=== PATIENT | female | born 1945 | race Caucasian/White ===

== ENCOUNTER 2017-08-15 12:32 | Inpatient (IN) | payer MEDICARE, OTHER ==
[~2017-08-15] VITALS: Ht 157.5 cm; Wt 72.8 kg
[2017-08-15 14:47] LABS: INTERNATIONAL NORMALIZED RATIO 0.98 (0.93-1.1); MEAN CORPUSCULAR HEMOGLOBIN 26.9 pg (27.0-34.8); MEAN CORPUSCULAR HGB CONC 32.6 g/dL (32.4-35.8); MEAN CORPUSCULAR VOLUME 82.4 fL (80-100); MEAN PLATELET VOLUME 8.6 fL (7.4-10.4); PLATELET COUNT 229 x10^3/uL (130-400); PROTHROMBIN TIME 10.1 Seconds (9.6-11.5); RED CELL DISTRIBUTION WIDTH 33.3 % (9.6-15.2)
[2017-08-15 14:50] LABS: ALANINE AMINOTRANSFERASE 11 U/L (12-78); ALBUMIN 3.4 g/dL (3.4-5.0); ANION GAP 4 mmol/L (5-15); CHLORIDE 102 mmol/L (98-107); CREATININE 0.61 mg/dL (0.55-1.02)
[2017-08-15 14:52] LABS: ALKALINE PHOSPHATASE 66 U/L (45-117); BILIRUBIN,TOTAL 0.2 mg/dL (0.2-1.0); TOTAL PROTEIN 7.7 g/dL (6.4-8.2)
[2017-08-15 15:04] LABS: BASOPHILS # (AUTO) 0.03 x10^3/uL (0-0.1); BASOPHILS % (AUTO) 0 % (0-1); EOSINOPHILS # (AUTO) 0.25 x10^3/uL (0-0.4); EOSINOPHILS % (AUTO) 4 % (1-7); LYMPHOCYTES # (AUTO) 2.42 x10^3/uL (1-3.4); LYMPHOCYTES % (AUTO) 35 % (22-44); MD MORPH REVIEW ONLY; MONOCYTES # (AUTO) 0.76 x10^3/uL (0.2-0.8); MONOCYTES % (AUTO) 11 % (2-9); NEUTROPHILS # (AUTO) 3.49 x10^3/uL (1.8-6.8); NEUTROPHILS % (AUTO) 50 % (42-75)
[2017-08-15 15:05] LABS: ANISOCYTOSIS 1+; MICROCYTOSIS 1+; OVALOCYTES 1+
[2017-08-15 15:06] LABS: <PLATELET ESTIMATE> ADEQUATE; <PLT MORPHOLOGY> NORMAL PLT MORPH
[2017-08-15 15:24] LABS: MICROSCOPIC AUTO
[2017-08-15 15:29] LABS: CULTURE INDICATED? YES
[2017-08-15] MEDS ORDERED: CEFTRIAXONE PMX 1GM/50ML 50 ML ONE (15:43)
[2017-08-15] MEDS ORDERED: CEFTRIAXONE PMX 1GM/50ML 50 ML IV ONE (16:00)
[2017-08-15] MEDS ORDERED: METH5TAB2 PO (16:16)
[2017-08-15] MEDS ORDERED: POTA20TA89 PO (16:16)
[2017-08-15] MEDS ORDERED: ACET650S21 PO (16:16)
[2017-08-15] MEDS ORDERED: POLY17PO5 PO (16:16)
[2017-08-15] MEDS ORDERED: ASPI-650 PO (16:16)
[2017-08-15] MEDS ORDERED: FERR325T5 PO (16:16)
[2017-08-15] MEDS ORDERED: GABA300C10 PO (16:16)
[2017-08-15] MEDS ORDERED: IPRA0.2S35 INH (16:16)
[2017-08-15] MEDS ORDERED: CALC-112 PO (16:16)
[2017-08-15] MEDS ORDERED: TIOT18CA INH (16:16)
[2017-08-15] MEDS ORDERED: DULO20CA45 PO (16:16)
[2017-08-15] MEDS ORDERED: CHOL200074 PO (16:16)
[2017-08-15] MEDS ORDERED: LATA2.5D3 EACHEYE (16:16)
[2017-08-15] MEDS ORDERED: DIVA125C PO (16:16)
[2017-08-15] MEDS ORDERED: LORA0.5T PO (16:16)
[2017-08-15] MEDS ORDERED: MAGN400O7 PO (16:16)
[2017-08-15] MEDS ORDERED: BISA10SU54 PR (16:16)
[2017-08-15 17:42] VITALS: BP 137/75
[2017-08-15] MEDS ORDERED: ONDANSETRON 2MG/ML, 2ML IVPush PRN (18:00)
[2017-08-15] MEDS ORDERED: ACETAMINOPHEN 325 MG TABLET PO PRN (18:00)
[2017-08-15 19:40] VITALS: BP 151/81
[2017-08-15] MEDS: DIVALPROEX 125 MG CAP.SPRINK PO SCH (21:20)
[2017-08-15] MEDS: GABAPENTIN 300 MG CAPSULE PO SCH (21:20)
[2017-08-15] MEDS: LATANOPROST OPHTH 0.005%, 2.5ML EACHEYE SCH (21:20)
[2017-08-16 00:55] VITALS: BP 123/75
[2017-08-16 07:11] VITALS: BP 109/68
[2017-08-16] MEDS: ENOXAPARIN 40 MG/0.4 ML SQ SCH (09:18)
[2017-08-16] MEDS: DULOXETINE 20 MG CAPSULE.DR PO SCH (09:18)
[2017-08-16] MEDS: GABAPENTIN 300 MG CAPSULE PO SCH ×3 (09:18→19:47)
[2017-08-16] MEDS: DIVALPROEX 125 MG CAP.SPRINK PO SCH ×2 (09:18→19:47)
[2017-08-16 11:50] VITALS: BP 123/41
[2017-08-16 13:21] VITALS: BP 120/75
[2017-08-16] MEDS ORDERED: CEFTRIAXONE PMX 2GM/50ML 50 ML IV SCH (16:00)
[2017-08-16] MEDS: LATANOPROST OPHTH 0.005%, 2.5ML EACHEYE SCH (19:48)
[2017-08-16 20:17] VITALS: BP 119/69
[2017-08-17 02:33] VITALS: BP 137/76
[2017-08-17 07:06] VITALS: BP 124/74
[2017-08-17] MEDS: DIVALPROEX 125 MG CAP.SPRINK PO SCH (09:43)
[2017-08-17] MEDS: ENOXAPARIN 40 MG/0.4 ML SQ SCH (09:43)
[2017-08-17] MEDS: DULOXETINE 20 MG CAPSULE.DR PO SCH (09:43)
[2017-08-17] MEDS: GABAPENTIN 300 MG CAPSULE PO SCH ×2 (09:43→16:17)
[2017-08-17] MEDS ORDERED: SULF1TAB24 PO (11:12)
[2017-08-17] MEDS ORDERED: SULFAMETH./TRIMETHOPRIM DS 800MG/160MG TABLET PO SCH (11:30)
[2017-08-17 13:34] VITALS: BP 123/73
== END 2017-08-17 16:30 | DRG 871 ==
LOC: ED 15:45 → EDIP 16:04 → 3NE 17:37
PROVIDERS: ADMIT Family Medicine; ATTEND Family Medicine
PROC: 0T9B70Z Drainage of Bladder with Drainage Device, Via Natural or Artificial Opening (ICD-10-PCS; principal; 2017-08-15)
DX: A41.9 Sepsis, unspecified organism (principal); G92 Toxic encephalopathy; I69.351 Hemiplegia and hemiparesis following cerebral infarction affecting right dominant side; F01.50 Vascular dementia, unspecified severity, without behavioral disturbance, psychotic disturbance, mood disturbance, and anxiety; N30.90 Cystitis, unspecified without hematuria; G40.909 Epilepsy, unspecified, not intractable, without status epilepticus; B96.20 Unspecified Escherichia coli [E. coli] as the cause of diseases classified elsewhere; J44.9 Chronic obstructive pulmonary disease, unspecified; Z16.19 Resistance to other specified beta lactam antibiotics; F32.9 Major depressive disorder, single episode, unspecified; Z79.82 Long term (current) use of aspirin; Z79.899 Other long term (current) drug therapy
CPT/HCPCS: 36415; 80053; 81001; 85025; 85610; 85730; 87077; 87086; 87186; 93005; 99285; J0696; J1650

== ENCOUNTER 2018-05-07 03:16 | Inpatient (IN) | payer MEDICARE, MEDICAID ==
[~2018-05-07] VITALS: Ht 157.5 cm; Wt 85.6 kg
[~2018-05-07 03:16] MED LIST: ACET650S21 PO; ASPI-650 PO; BISA10SU54 PR; CALC-112 PO; CHOL200074 PO; DIVA125C2 PO; DULO20CA45 PO; ETOMIDATE 40 MG/20 ML ONE; FERR325T5 PO; GABA300C10 PO; IPRA0.2S35 INH; LATA2.5D3 EACHEYE; LORA0.5T PO; MAGN400O7 PO; METH5TAB2 PO; MIDAZOLAM 1 MG/ML, 5ML ONE; POLY17PO5 PO; POTA20TA89 PO; SUCCINYLCHOLINE 20 MG/ML, 10ML ONE; SULF1TAB24 PO; TIOT18CA INH
[2018-05-07] MEDS ORDERED: ALBUTEROL 0.5%, 20ML ONE (03:27)
[2018-05-07] MEDS ORDERED: CEFTRIAXONE 1,000 MG in SODIUM CHLORIDE 0.9% 50 ML IVPB ONE (03:30)
[2018-05-07] MEDS ORDERED: VANCOMYCIN PER PHARMACY IV ONE (03:30)
[2018-05-07] MEDS ORDERED: ACETAMINOPHEN 500 MG TABLET PO ONE (03:30)
[2018-05-07] MEDS ORDERED: SODIUM CHLORIDE 0.9% 1,000ML IVBOLUS ONE ×3 (03:30→17:30)
[2018-05-07] MEDS ORDERED: ACETAMINOPHEN 325 MG SUPP ONE (03:33)
[2018-05-07] MEDS ORDERED: ACETAMINOPHEN 650 MG SUPP ONE ×3 (03:33→14:55)
[2018-05-07] MEDS ORDERED: CEFTRIAXONE PMX 1GM/50ML 50 ML ONE (03:34)
[2018-05-07] MEDS ORDERED: VANCOMYCIN 1,800 MG in SODIUM CHLORIDE 0.9% 250 ML IV ONE (04:00)
[2018-05-07] MEDS ORDERED: PLEASE ENTER HEIGHT AND WEIGHT MC SCH (04:00)
[2018-05-07 04:05] LABS: BASOPHILS # (AUTO) 0.01 x10^3/uL (0-0.1); BASOPHILS % (AUTO) 0 % (0-1); EOSINOPHILS # (AUTO) 0.05 x10^3/uL (0-0.4); EOSINOPHILS % (AUTO) 0 % (1-7); LYMPHOCYTES # (AUTO) 1.43 x10^3/uL (1-3.4); LYMPHOCYTES % (AUTO) 11 % (22-44); MD NO; MEAN CORPUSCULAR HEMOGLOBIN 30.7 pg (27.0-34.8); MEAN CORPUSCULAR HGB CONC 33.1 g/dL (32.4-35.8); MEAN CORPUSCULAR VOLUME 92.8 fL (80-100); MEAN PLATELET VOLUME 8.3 fL (7.4-10.4); MONOCYTES # (AUTO) 0.27 x10^3/uL (0.2-0.8); MONOCYTES % (AUTO) 2 % (2-9); NEUTROPHILS # (AUTO) 10.79 x10^3/uL (1.8-6.8); NEUTROPHILS % (AUTO) 86 % (42-75); PLATELET COUNT 225 x10^3/uL (130-400); RED BLOOD COUNT 4.06 x10^6/uL (3.82-5.3); RED CELL DISTRIBUTION WIDTH 13.1 % (9.6-15.2)
[2018-05-07 04:14] LABS: ALANINE AMINOTRANSFERASE 18 U/L (12-78); ALBUMIN 3.1 g/dL (3.4-5.0); ANION GAP 6 mmol/L (5-15); CALCIUM 7.7 mg/dL (8.5-10.1); CHLORIDE 111 mmol/L (98-107); CREATININE 0.73 mg/dL (0.55-1.02)
[2018-05-07 04:18] LABS: ALKALINE PHOSPHATASE 63 U/L (45-117); BILIRUBIN,TOTAL 0.3 mg/dL (0.2-1.0); TOTAL PROTEIN 6.6 g/dL (6.4-8.2)
[2018-05-07 04:21] LABS: TROPONIN I 0.575 ng/mL (0.000-0.045)
[2018-05-07] MEDS ORDERED: ETOMIDATE 20 MG/10 ML IVPush ONE (04:30)
[2018-05-07] MEDS ORDERED: SUCCINYLCHOLINE 20 MG/ML, 10ML IVPush ONE (04:30)
[2018-05-07] MEDS: MIDAZOLAM HCL 25 MG in SODIUM CHLORIDE 0.9% 245 ML IV PRN ×2 (04:31→10:07)
[2018-05-07] MEDS ORDERED: FENTANYL PF 100 MCG/2ML ONE (04:38)
[2018-05-07] MEDS ORDERED: FENTANYL PF 2,500 MCG in SODIUM CHLORIDE 0.9% 200 ML IV PRN (04:55)
[2018-05-07] MEDS ORDERED: SODIUM CHLORIDE 0.9% 1,000 ML IV ONE (04:58)
[2018-05-07] MEDS ORDERED: MIDAZOLAM 1 MG/ML, 5ML IVPush ONE (05:00)
[2018-05-07] MEDS ORDERED: FENTANYL PF 100 MCG/2ML IVPush ONE (05:00)
[2018-05-07 05:10] LABS: MICROSCOPIC AUTO
[2018-05-07 05:11] LABS: CULTURE INDICATED? NO
[2018-05-07] MEDS ORDERED: D5%-0.45NACL+KCL 20MEQ 1,000 ML IV SCH (05:54)
[2018-05-07] MEDS ORDERED: POLYETHYLENE GLYCOL 17 GM PACKET PO PRN (06:00)
[2018-05-07] MEDS ORDERED: BISACODYL 10 MG SUPP PR PRN ×2 (06:00→12:30)
[2018-05-07] MEDS ORDERED: ACETAMINOPHEN 325 MG TABLET PO PRN (06:00)
[2018-05-07] MEDS ORDERED: ONDANSETRON 2MG/ML, 2ML IVPush PRN (06:00)
[2018-05-07] MEDS ORDERED: DOCUSATE 100 MG CAPSULE PO PRN (06:00)
[2018-05-07] MEDS ORDERED: CEFTRIAXONE PMX 1GM/50ML 50 ML IV SCH (06:00)
[2018-05-07] MEDS ORDERED: VANCOMYCIN PER PHARMACY MC PRN (06:00)
[2018-05-07] MEDS ORDERED: IPRATROPIUM 0.5 MG/2.5 ML INHA IPPB PRN (06:00)
[2018-05-07] MEDS ORDERED: MIDAZOLAM 1 MG/ML, 2ML ONE (07:03)
[2018-05-07] MEDS ORDERED: PANTOPRAZOLE 40 MG IV IVPush SCH (07:30)
[2018-05-07] MEDS ORDERED: DULOXETINE HCL 20 MG PO SCH (09:00)
[2018-05-07] MEDS ORDERED: FERROUS SULFATE 325 MG PO SCH (09:00)
[2018-05-07] MEDS ORDERED: TEMPLATE NON-FORMULARY MED. (Gabapentin** 300 MG) PO SCH (09:00)
[2018-05-07] MEDS ORDERED: DIVALPROEX SODIUM 250 MG PO SCH (09:00)
[2018-05-07] MEDS ORDERED: ASPIRIN 325 MG PO SCH (09:00)
[2018-05-07] MEDS ORDERED: TEMPLATE NON-FORMULARY MED. (Tiotropium Bromide** (Spiriva**) 18 MCG) INH SCH (09:00)
[2018-05-07] MEDS: SENNA/DOCUSATE TABLET PO SCH (09:00)
[2018-05-07] MEDS ORDERED: OMNIPAQUE 350 MG/ML, 100ML BOTTLE ONE (09:01)
[2018-05-07] MEDS ORDERED: PLEASE ENTER HEIGHT MC SCH ×2 (09:30→10:00)
[2018-05-07] MEDS ORDERED: PANTOPRAZOLE 40 MG IV ONE (10:12)
[2018-05-07] MEDS ORDERED: ENOXAPARIN 40 MG/0.4 ML ONE (10:12)
[2018-05-07] MEDS: MEROPENEM 1 GM in SODIUM CHLORIDE 0.9% 100 ML IV SCH ×2 (10:15→16:30)
[2018-05-07] MEDS: ENOXAPARIN 40 MG/0.4 ML SQ SCH (10:15)
[2018-05-07] MEDS: LINEZOLID PMX 600MG/300ML 300 ML IV SCH ×2 (11:16→22:07)
[2018-05-07] MEDS ORDERED: ALBUTEROL/IPRATROPIUM 2.5MG/0.5MG, 3 ML INLINE SCH (12:30)
[2018-05-07] MEDS ORDERED: LIDOCAINE-MPF 1%, 2ML ENDO PRN (12:30)
[2018-05-07] MEDS ORDERED: DEXTROSE 50%, 50ML SYRINGE IVPush PRN (12:30)
[2018-05-07] MEDS ORDERED: DEXTROSE 4 GM TAB.CHEW PO PRN (12:30)
[2018-05-07] MEDS ORDERED: PHARMACY MAY ADJ FOR RENAL FX MC SCH (12:30)
[2018-05-07] MEDS: ALBUTEROL/IPRATROPIUM 2.5MG/0.5MG, 3 ML INLINE SCH ×3 (12:30→22:24)
[2018-05-07] MEDS ORDERED: LACTULOSE 20 GM/30 ML UDC NG PRN (12:30)
[2018-05-07] MEDS ORDERED: FENTANYL PF 100 MCG/2ML IVPush PRN (12:30)
[2018-05-07] MEDS ORDERED: SENNOSIDES 8.8 MG/5 ML ORAL SOL NG PRN (12:30)
[2018-05-07] MEDS ORDERED: GLUCAGON 1 MG IM PRN (12:30)
[2018-05-07] MEDS ORDERED: SENNA/DOCUSATE TABLET NG PRN (12:30)
[2018-05-07] MEDS: FAMOTIDINE 20 MG/2 ML IV SCH (13:50)
[2018-05-07] MEDS: methylPREDNISolone SOD SUCC 125 MG/2 ML IVPush SCH ×2 (13:59→18:38)
[2018-05-07] MEDS: PROPOFOL 100 ML IV PRN (14:00)
[2018-05-07] MEDS: GABAPENTIN 300 MG CAPSULE PO SCH ×2 (16:29→21:00)
[2018-05-07] MEDS ORDERED: HEPARIN 5,000 UNITS/ML, 1ML IV ONE (18:00)
[2018-05-07] MEDS ORDERED: HEPARIN 5,000 UNITS/ML, 1ML IV PRN (18:00)
[2018-05-07] MEDS: HEPARIN 25,000 UNITS/500ML PMX 500 ML IV PRN (18:40)
[2018-05-07] MEDS: DULOXETINE 20 MG CAPSULE.DR PO SCH (21:00)
[2018-05-07] MEDS: DIVALPROEX 250 MG TABLET.DR PO SCH (21:00)
[2018-05-07] MEDS: ACETAMINOPHEN 650 MG SUPP PR PRN (22:07)
[2018-05-07] MEDS: SODIUM CHLORIDE FLUSH 10ML SYR IVF SCH (22:07)
[2018-05-07] MEDS: LATANOPROST OPHTH 0.005%, 2.5ML EACHEYE SCH (22:48)
[2018-05-08] MEDS: methylPREDNISolone SOD SUCC 125 MG/2 ML IVPush SCH ×4 (00:03→18:19)
[2018-05-08] MEDS: FAMOTIDINE 20 MG/2 ML IV SCH ×2 (00:03→11:53)
[2018-05-08] MEDS: MEROPENEM 1 GM in SODIUM CHLORIDE 0.9% 100 ML IV SCH ×3 (00:03→16:02)
[2018-05-08] MEDS: ALBUTEROL/IPRATROPIUM 2.5MG/0.5MG, 3 ML INLINE SCH ×6 (02:00→22:08)
[2018-05-08 04:54] VITALS: BP 104/55
[2018-05-08] MEDS ORDERED: D5%-0.45NACL+KCL 20MEQ 1,000 ML IV ONE (05:00)
[2018-05-08] MEDS: PROPOFOL 100 ML IV PRN (06:18)
[2018-05-08] MEDS: ENOXAPARIN 40 MG/0.4 ML SQ SCH (06:19)
[2018-05-08 07:51] LABS: MEAN CORPUSCULAR VOLUME 93.8 fL (80-100); MEAN PLATELET VOLUME 9.2 fL (7.4-10.4); PLATELET COUNT 173 x10^3/uL (130-400); RED BLOOD COUNT 4.38 x10^6/uL (3.82-5.3); RED CELL DISTRIBUTION WIDTH 13.2 % (9.6-15.2)
[2018-05-08 07:52] LABS: ALANINE AMINOTRANSFERASE 33 U/L (12-78); ALBUMIN 2.4 g/dL (3.4-5.0); ANION GAP 14 mmol/L (5-15); CALCIUM 7.5 mg/dL (8.5-10.1); CHLORIDE 104 mmol/L (98-107); CREATININE 0.88 mg/dL (0.55-1.02)
[2018-05-08] MEDS: ACETAMINOPHEN 650 MG SUPP PR PRN (07:52)
[2018-05-08 07:55] LABS: ALKALINE PHOSPHATASE 45 U/L (45-117); BILIRUBIN,TOTAL 0.4 mg/dL (0.2-1.0); TOTAL PROTEIN 6.5 g/dL (6.4-8.2)
[2018-05-08] MEDS: TEMPLATE NON-FORMULARY MED. (Tiotropium Bromide** (Spiriva**) 18 MCG) INH SCH (08:48)
[2018-05-08] MEDS: SENNA/DOCUSATE TABLET PO SCH (08:48)
[2018-05-08] MEDS: GABAPENTIN 300 MG CAPSULE PO SCH ×3 (08:48→20:11)
[2018-05-08] MEDS: FERROUS SULFATE 325 MG TABLET PO SCH (08:49)
[2018-05-08] MEDS: DULOXETINE 20 MG CAPSULE.DR PO SCH ×2 (08:49→20:11)
[2018-05-08 08:53] LABS: MD YES
[2018-05-08 08:54] LABS: <PLATELET ESTIMATE> ADEQUATE; <PLT MORPHOLOGY> NORMAL PLT MORPH; <RBC MORPHOLOGY> NORMAL; BANDS%(MANUAL) 32 % (0-7); LYMPH#(MANUAL) 1.38 x10^3/uL (1-3.4); LYMPHS% (MANUAL) 5 % (22-44); METAMYELOCYTES# (MANUAL) 0.28 x10^3/uL (0-0); METAMYELOCYTES% (MANUAL) 1 % (0-1); MONOS#(MANUAL) 0.28 x10^3/uL (0.3-2.7); MONOS% (MANUAL) 1 % (2-9); SEG#(MANUAL) 16.78 x10^3/uL (1.8-6.8); SEGS% (MANUAL) 61 % (42-75)
[2018-05-08] MEDS: DIVALPROEX 250 MG TABLET.DR PO SCH ×2 (09:00→20:11)
[2018-05-08] MEDS: ASPIRIN 325 MG TABLET PO SCH (09:00)
[2018-05-08] MEDS ORDERED: MAGNESIUM SULFATE PMX 4GM/100M 100 ML IV ONE (09:00)
[2018-05-08] MEDS: SODIUM CHLORIDE FLUSH 10ML SYR IVF SCH ×2 (10:42→20:09)
[2018-05-08] MEDS: LINEZOLID PMX 600MG/300ML 300 ML IV SCH ×2 (11:33→22:11)
[2018-05-08] MEDS: FENTANYL PF 100 MCG/2ML IVPush PRN ×2 (11:33→16:01)
[2018-05-08] MEDS: LATANOPROST OPHTH 0.005%, 2.5ML EACHEYE SCH (20:09)
[2018-05-09] MEDS: MEROPENEM 1 GM in SODIUM CHLORIDE 0.9% 100 ML IV SCH (00:12)
[2018-05-09] MEDS: HEPARIN 25,000 UNITS/500ML PMX 500 ML IV PRN (00:14)
[2018-05-09] MEDS: methylPREDNISolone SOD SUCC 125 MG/2 ML IVPush SCH ×2 (00:20→06:09)
[2018-05-09] MEDS: FAMOTIDINE 20 MG/2 ML IV SCH ×2 (00:20→12:10)
[2018-05-09] MEDS: ALBUTEROL/IPRATROPIUM 2.5MG/0.5MG, 3 ML INLINE SCH ×2 (02:10→06:00)
[2018-05-09 03:31] LABS: MEAN CORPUSCULAR HEMOGLOBIN 31.6 pg (27.0-34.8); MEAN CORPUSCULAR HGB CONC 34.3 g/dL (32.4-35.8); MEAN CORPUSCULAR VOLUME 92.1 fL (80-100); MEAN PLATELET VOLUME 8.7 fL (7.4-10.4); PLATELET COUNT 150 x10^3/uL (130-400); RED BLOOD COUNT 3.79 x10^6/uL (3.82-5.3); RED CELL DISTRIBUTION WIDTH 13.3 % (9.6-15.2)
[2018-05-09 03:33] LABS: ANION GAP 10 mmol/L (5-15); CALCIUM 7.7 mg/dL (8.5-10.1); CHLORIDE 101 mmol/L (98-107); CREATININE 0.87 mg/dL (0.55-1.02)
[2018-05-09 03:42] LABS: MD YES
[2018-05-09 03:44] LABS: <PLATELET ESTIMATE> ADEQUATE; <PLT MORPHOLOGY> NORMAL PLT MORPH; <RBC MORPHOLOGY> NORMAL; BAND#(MANUAL) 4.88 x10^3/uL; BANDS%(MANUAL) 20 % (0-7); LYMPH#(MANUAL) 1.22 x10^3/uL (1-3.4); LYMPHS% (MANUAL) 5 % (22-44); MONOS#(MANUAL) 0.24 x10^3/uL (0.3-2.7); MONOS% (MANUAL) 1 % (2-9); SEG#(MANUAL) 18.06 x10^3/uL (1.8-6.8); SEGS% (MANUAL) 74 % (42-75)
[2018-05-09 04:20] VITALS: BP 95/61
[2018-05-09] MEDS: PROPOFOL 100 ML IV PRN (06:10)
[2018-05-09] MEDS: FENTANYL PF 100 MCG/2ML IVPush PRN ×2 (07:49→19:35)
[2018-05-09] MEDS: ASPIRIN 325 MG TABLET PO SCH (08:22)
[2018-05-09] MEDS: DIVALPROEX 250 MG TABLET.DR PO SCH ×2 (08:22→20:40)
[2018-05-09] MEDS: DULOXETINE 20 MG CAPSULE.DR PO SCH ×2 (08:22→20:40)
[2018-05-09] MEDS: TEMPLATE NON-FORMULARY MED. (Tiotropium Bromide** (Spiriva**) 18 MCG) INH SCH (08:22)
[2018-05-09] MEDS: FERROUS SULFATE 325 MG TABLET PO SCH (08:22)
[2018-05-09] MEDS: SENNA/DOCUSATE TABLET PO SCH (08:23)
[2018-05-09] MEDS: GABAPENTIN 300 MG CAPSULE PO SCH ×3 (08:23→20:40)
[2018-05-09] MEDS: SODIUM CHLORIDE FLUSH 10ML SYR IVF SCH ×2 (08:26→20:41)
[2018-05-09] MEDS: CEFTRIAXONE 2 GM in SODIUM CHLORIDE 0.9% 50 ML IV SCH (08:26)
[2018-05-09] MEDS: CLINDAMYCIN PMX 600MG/50ML 50 ML IV SCH ×2 (09:16→16:05)
[2018-05-09] MEDS ORDERED: methylPREDNISolone SOD SUCC 40 MG/ML IVPush SCH (14:30)
[2018-05-09] MEDS: IPRATROPIUM 0.5 MG/2.5 ML INHA NPPB SCH ×2 (14:41→20:16)
[2018-05-09] MEDS: methylPREDNISolone SOD SUCC 40 MG/ML IVPush SCH (14:43)
[2018-05-09] MEDS: LORazepam 2 MG/ML, 1ML IVPush PRN (20:41)
[2018-05-09] MEDS: LATANOPROST OPHTH 0.005%, 2.5ML EACHEYE SCH (20:42)
[2018-05-10] MEDS: CLINDAMYCIN PMX 600MG/50ML 50 ML IV SCH (00:08)
[2018-05-10] MEDS: FAMOTIDINE 20 MG/2 ML IV SCH (00:11)
[2018-05-10] MEDS: methylPREDNISolone SOD SUCC 40 MG/ML IVPush SCH (02:27)
[2018-05-10] MEDS: IPRATROPIUM 0.5 MG/2.5 ML INHA NPPB SCH ×4 (03:00→21:00)
[2018-05-10] MEDS ORDERED: ALBUTEROL SULFATE 2.5 MG/3 ML ONE (03:47)
[2018-05-10 04:00] VITALS: BP 94/52
[2018-05-10 05:18] LABS: MEAN CORPUSCULAR HEMOGLOBIN 31.2 pg (27.0-34.8); MEAN CORPUSCULAR HGB CONC 33.6 g/dL (32.4-35.8); PLATELET COUNT 124 x10^3/uL (130-400); RED BLOOD COUNT 3.15 x10^6/uL (3.82-5.3); RED CELL DISTRIBUTION WIDTH 13.8 % (9.6-15.2)
[2018-05-10 05:29] LABS: ANION GAP 8 mmol/L (5-15); CALCIUM 8.1 mg/dL (8.5-10.1); CHLORIDE 103 mmol/L (98-107)
[2018-05-10 05:30] LABS: CREATININE 0.57 mg/dL (0.55-1.02)
[2018-05-10 05:59] LABS: BASOPHILS % (AUTO) 0 % (0-1); EOSINOPHILS % (AUTO) 0 % (1-7); LYMPHOCYTES % (AUTO) 5 % (22-44); MD SCAN; MONOCYTES # (AUTO) 1.02 x10^3/uL (0.2-0.8); MONOCYTES % (AUTO) 5 % (2-9); NEUTROPHILS # (AUTO) 16.85 x10^3/uL (1.8-6.8); NEUTROPHILS % (AUTO) 89 % (42-75)
[2018-05-10] MEDS: CEFTRIAXONE 2 GM in SODIUM CHLORIDE 0.9% 50 ML IV SCH (07:29)
[2018-05-10] MEDS ORDERED: POTASSIUM CHLORIDE 10% 40 MEQ/30 ML UDC PO ONE (07:30)
[2018-05-10] MEDS: TEMPLATE NON-FORMULARY MED. (Tiotropium Bromide** (Spiriva**) 18 MCG) INH SCH (08:34)
[2018-05-10] MEDS: DIVALPROEX 250 MG TABLET.DR PO SCH ×2 (08:35→20:28)
[2018-05-10] MEDS: FERROUS SULFATE 325 MG TABLET PO SCH (08:35)
[2018-05-10] MEDS: ASPIRIN 325 MG TABLET PO SCH (08:35)
[2018-05-10] MEDS: ENOXAPARIN 40 MG/0.4 ML SQ SCH (08:35)
[2018-05-10] MEDS: SODIUM CHLORIDE FLUSH 10ML SYR IVF SCH ×2 (08:35→20:29)
[2018-05-10] MEDS: SENNA/DOCUSATE TABLET PO SCH (08:35)
[2018-05-10] MEDS: DULOXETINE 20 MG CAPSULE.DR PO SCH ×2 (08:35→20:28)
[2018-05-10] MEDS: GABAPENTIN 300 MG CAPSULE PO SCH ×3 (08:35→20:28)
[2018-05-10 09:30] VITALS: BP 101/71
[2018-05-10 09:37] VITALS: BP 101/71
[2018-05-10 10:47] LABS: HIT RESULT POSITIVE (NEGATIVE)
[2018-05-10 12:36] VITALS: BP 97/66
[2018-05-10] MEDS: LORazepam 2 MG/ML, 1ML IVPush PRN (20:28)
[2018-05-10 21:00] VITALS: BP 140/86
[2018-05-10] MEDS ORDERED: DOXYCYCLINE 100MG TABLET PO SCH (21:00)
[2018-05-10] MEDS: LATANOPROST OPHTH 0.005%, 2.5ML EACHEYE SCH (21:00)
[2018-05-11 00:15] VITALS: BP 154/86
[2018-05-11] MEDS: LATANOPROST OPHTH 0.005%, 2.5ML EACHEYE SCH (00:18)
[2018-05-11] MEDS: LORazepam 2 MG/ML, 1ML IVPush PRN (00:33)
[2018-05-11 00:42] VITALS: BP 140/86
[2018-05-11] MEDS: IPRATROPIUM 0.5 MG/2.5 ML INHA NPPB SCH ×4 (02:20→21:00)
[2018-05-11 06:02] LABS: ANION GAP 9 mmol/L (5-15); CALCIUM 8.7 mg/dL (8.5-10.1); CHLORIDE 104 mmol/L (98-107)
[2018-05-11 06:32] LABS: MEAN CORPUSCULAR HEMOGLOBIN 31.2 pg (27.0-34.8); MEAN CORPUSCULAR HGB CONC 33.5 g/dL (32.4-35.8); MEAN CORPUSCULAR VOLUME 93.3 fL (80-100); MEAN PLATELET VOLUME 9.5 fL (7.4-10.4); PLATELET COUNT 140 x10^3/uL (130-400); RED BLOOD COUNT 3.64 x10^6/uL (3.82-5.3); RED CELL DISTRIBUTION WIDTH 13.5 % (9.6-15.2)
[2018-05-11 06:49] VITALS: BP 147/73
[2018-05-11 07:29] LABS: MD YES
[2018-05-11 07:32] LABS: <RBC MORPHOLOGY> NORMAL; BAND#(MANUAL) 2.09 x10^3/uL; BANDS%(MANUAL) 11 % (0-7); LYMPH#(MANUAL) 2.85 x10^3/uL (1-3.4); LYMPHS% (MANUAL) 15 % (22-44); METAMYELOCYTES# (MANUAL) 0.19 x10^3/uL (0-0); METAMYELOCYTES% (MANUAL) 1 % (0-1); MONOS% (MANUAL) 10 % (2-9); SEG#(MANUAL) 11.97 x10^3/uL (1.8-6.8); SEGS% (MANUAL) 63 % (42-75)
[2018-05-11 07:33] LABS: <PLATELET ESTIMATE> ADEQUATE; LARGE PLATELETS 1+
[2018-05-11] MEDS: GABAPENTIN 300 MG CAPSULE PO SCH ×3 (08:44→20:04)
[2018-05-11] MEDS: SENNA/DOCUSATE TABLET PO SCH (08:44)
[2018-05-11] MEDS: ASPIRIN 325 MG TABLET PO SCH (08:44)
[2018-05-11] MEDS: FERROUS SULFATE 325 MG TABLET PO SCH (08:44)
[2018-05-11] MEDS: DIVALPROEX 250 MG TABLET.DR PO SCH ×2 (08:45→20:04)
[2018-05-11] MEDS: DULOXETINE 20 MG CAPSULE.DR PO SCH ×2 (08:45→20:04)
[2018-05-11] MEDS: ENOXAPARIN 40 MG/0.4 ML SQ SCH (08:45)
[2018-05-11] MEDS: CEFTRIAXONE 2 GM in SODIUM CHLORIDE 0.9% 50 ML IV SCH (08:45)
[2018-05-11] MEDS: TEMPLATE NON-FORMULARY MED. (Tiotropium Bromide** (Spiriva**) 18 MCG) INH SCH (08:45)
[2018-05-11] MEDS: SODIUM CHLORIDE FLUSH 10ML SYR IVF SCH ×2 (08:46→21:00)
[2018-05-11 12:15] VITALS: BP 166/84
[2018-05-11 19:50] VITALS: BP 157/93
[2018-05-11] MEDS: morphine SULFATE 10 MG/ML, 1ML IVPush PRN (20:04)
[2018-05-12 01:11] VITALS: BP 143/82
[2018-05-12] MEDS: LATANOPROST OPHTH 0.005%, 2.5ML EACHEYE SCH ×2 (01:23→22:30)
[2018-05-12] MEDS: IPRATROPIUM 0.5 MG/2.5 ML INHA NPPB SCH ×2 (03:00→10:02)
[2018-05-12] MEDS: morphine SULFATE 10 MG/ML, 1ML IVPush PRN ×2 (03:50→09:37)
[2018-05-12 05:21] LABS: CHLORIDE 105 mmol/L (98-107)
[2018-05-12 05:22] LABS: ANION GAP 5 mmol/L (5-15); CALCIUM 8.2 mg/dL (8.5-10.1); CREATININE 0.57 mg/dL (0.55-1.02)
[2018-05-12 05:33] LABS: BASOPHILS % (AUTO) 0 % (0-1); EOSINOPHILS # (AUTO) 0.07 x10^3/uL (0-0.4); EOSINOPHILS % (AUTO) 1 % (1-7); LYMPHOCYTES % (AUTO) 21 % (22-44); MD NO; MEAN CORPUSCULAR HEMOGLOBIN 31.4 pg (27.0-34.8); MEAN CORPUSCULAR HGB CONC 33.3 g/dL (32.4-35.8); MEAN CORPUSCULAR VOLUME 94.4 fL (80-100); MEAN PLATELET VOLUME 8.6 fL (7.4-10.4); MONOCYTES # (AUTO) 1.37 x10^3/uL (0.2-0.8); MONOCYTES % (AUTO) 10 % (2-9); NEUTROPHILS # (AUTO) 9.37 x10^3/uL (1.8-6.8); NEUTROPHILS % (AUTO) 68 % (42-75); PLATELET COUNT 165 x10^3/uL (130-400); RED BLOOD COUNT 3.81 x10^6/uL (3.82-5.3); RED CELL DISTRIBUTION WIDTH 13.6 % (9.6-15.2)
[2018-05-12 06:55] VITALS: BP 162/80
[2018-05-12] MEDS: ASPIRIN 325 MG TABLET PO SCH (09:00)
[2018-05-12] MEDS: SODIUM CHLORIDE FLUSH 10ML SYR IVF SCH ×2 (09:00→22:31)
[2018-05-12] MEDS: TEMPLATE NON-FORMULARY MED. (Tiotropium Bromide** (Spiriva**) 18 MCG) INH SCH (09:00)
[2018-05-12] MEDS: SENNA/DOCUSATE TABLET PO SCH (09:36)
[2018-05-12] MEDS: GABAPENTIN 300 MG CAPSULE PO SCH ×3 (09:36→22:30)
[2018-05-12] MEDS: FERROUS SULFATE 325 MG TABLET PO SCH (09:36)
[2018-05-12] MEDS: ENOXAPARIN 40 MG/0.4 ML SQ SCH (09:36)
[2018-05-12] MEDS: CEFTRIAXONE 2 GM in SODIUM CHLORIDE 0.9% 50 ML IV SCH (09:37)
[2018-05-12] MEDS: DULOXETINE 20 MG CAPSULE.DR PO SCH ×2 (09:37→22:30)
[2018-05-12] MEDS: DIVALPROEX 250 MG TABLET.DR PO SCH ×2 (09:37→22:30)
[2018-05-12] MEDS: ALBUTEROL/IPRATROPIUM 2.5MG/0.5MG, 3 ML HHN SCH ×2 (15:00→18:50)
[2018-05-12] MEDS ORDERED: POTASSIUM CHLORIDE 10 MEQ TABLET.ER PO ONE (17:00)
[2018-05-12 20:27] VITALS: BP 140/83
[2018-05-13 01:21] VITALS: BP 153/86
[2018-05-13] MEDS: ALBUTEROL/IPRATROPIUM 2.5MG/0.5MG, 3 ML HHN SCH ×2 (03:00→06:24)
[2018-05-13 04:47] LABS: BASOPHILS % (AUTO) 1 % (0-1); EOSINOPHILS % (AUTO) 2 % (1-7); LYMPHOCYTES # (AUTO) 2.55 x10^3/uL (1-3.4); LYMPHOCYTES % (AUTO) 25 % (22-44); MD NO; MEAN CORPUSCULAR HEMOGLOBIN 31.6 pg (27.0-34.8); MEAN CORPUSCULAR HGB CONC 33.9 g/dL (32.4-35.8); MEAN CORPUSCULAR VOLUME 93.3 fL (80-100); MEAN PLATELET VOLUME 8.3 fL (7.4-10.4); MONOCYTES % (AUTO) 9 % (2-9); NEUTROPHILS # (AUTO) 6.66 x10^3/uL (1.8-6.8); NEUTROPHILS % (AUTO) 64 % (42-75); PLATELET COUNT 191 x10^3/uL (130-400); RED BLOOD COUNT 3.41 x10^6/uL (3.82-5.3); RED CELL DISTRIBUTION WIDTH 13.5 % (9.6-15.2)
[2018-05-13 04:55] LABS: ANION GAP 5 mmol/L (5-15); CHLORIDE 106 mmol/L (98-107)
[2018-05-13 04:57] LABS: CREATININE 0.45 mg/dL (0.55-1.02)
[2018-05-13 07:42] VITALS: BP 134/82
[2018-05-13] MEDS: CEFTRIAXONE 2 GM in SODIUM CHLORIDE 0.9% 50 ML IV SCH (08:53)
[2018-05-13] MEDS: ENOXAPARIN 40 MG/0.4 ML SQ SCH (08:55)
[2018-05-13] MEDS: SODIUM CHLORIDE FLUSH 10ML SYR IVF SCH (08:55)
[2018-05-13] MEDS: DIVALPROEX 250 MG TABLET.DR PO SCH (08:56)
[2018-05-13] MEDS: FERROUS SULFATE 325 MG TABLET PO SCH (08:56)
[2018-05-13] MEDS: SENNA/DOCUSATE TABLET PO SCH (08:56)
[2018-05-13] MEDS: GABAPENTIN 300 MG CAPSULE PO SCH (08:56)
[2018-05-13] MEDS: DULOXETINE 20 MG CAPSULE.DR PO SCH (08:56)
[2018-05-13] MEDS: ASPIRIN 325 MG TABLET PO SCH (08:56)
[2018-05-13] MEDS ORDERED: LORA0.5T PO (10:56)
[2018-05-13] MEDS ORDERED: METH5TAB2 PO (10:56)
[2018-05-13] MEDS ORDERED: FOND2.5D3 SQ (10:56)
[2018-05-13] MEDS ORDERED: LACT20SO13 NG (10:56)
[2018-05-13] MEDS ORDERED: PRED20TA PO (10:56)
[2018-05-13] MEDS ORDERED: IPRA3AMP30 HHN (10:56)
[2018-05-13] MEDS ORDERED: CEFT2FRO2 IV (10:59)
[2018-05-13 13:03] VITALS: BP 145/85
[2018-05-14] MEDS ORDERED: FONDAPARINUX 2.5 MG/0.5 ML SQ SCH (09:00)
== END 2018-05-13 15:34 | DRG 871 ==
LOC: ED 04:11 → EDIP 04:58 → CCU 08:51 → 3NE 05-10 09:23
PROVIDERS: ADMIT Family Medicine; ATTEND Family Medicine
PROC: 0T9B70Z Drainage of Bladder with Drainage Device, Via Natural or Artificial Opening (ICD-10-PCS; principal; 2018-05-07)
PROC: 5A1945Z Respiratory Ventilation, 24-96 Consecutive Hours (ICD-10-PCS; 2018-05-07)
PROC: 0BH17EZ Insertion of Endotracheal Airway into Trachea, Via Natural or Artificial Opening (ICD-10-PCS; 2018-05-07)
DX: A40.0 Sepsis due to streptococcus, group A (principal); J96.01 Acute respiratory failure with hypoxia; G93.41 Metabolic encephalopathy; I21.4 Non-ST elevation (NSTEMI) myocardial infarction; J96.02 Acute respiratory failure with hypercapnia; R65.21 Severe sepsis with septic shock; J18.9 Pneumonia, unspecified organism; E44.0 Moderate protein-calorie malnutrition; E87.0 Hyperosmolality and hypernatremia; J98.11 Atelectasis; L03.115 Cellulitis of right lower limb; I69.351 Hemiplegia and hemiparesis following cerebral infarction affecting right dominant side; Z99.11 Dependence on respirator [ventilator] status; G96.9 Disorder of central nervous system, unspecified; E83.39 Other disorders of phosphorus metabolism; E83.42 Hypomagnesemia; F01.50 Vascular dementia, unspecified severity, without behavioral disturbance, psychotic disturbance, mood disturbance, and anxiety; G62.9 Polyneuropathy, unspecified; H40.9 Unspecified glaucoma; I10 Essential (primary) hypertension; I25.10 Atherosclerotic heart disease of native coronary artery without angina pectoris; J43.9 Emphysema, unspecified; K44.9 Diaphragmatic hernia without obstruction or gangrene; R32 Unspecified urinary incontinence; Z66 Do not resuscitate; Z87.891 Personal history of nicotine dependence; Z68.34 Body mass index [BMI] 34.0-34.9, adult; I69.320 Aphasia following cerebral infarction; Z99.3 Dependence on wheelchair
CPT/HCPCS: 31500; 36415; 36600; 70450; 71045; 71275; 74018; 74230; 80048; 80053; 81001; 82803; 83605; 83735; 84100; 84145; 84478; 84484; 85025; 85520; 86022; 87040; 87070; 87077; 87081; 87147; 87181; 87186; 87205; 93005; 93306; 93970; 94002; 94003; 94640; 94644; 96361; 96365; 96366; 96375; 96376; 99291; G0378; J0696; J1644; J1650; J2020; J2185; J2250; J2704; J3010; J3370; J7620; J7644; Q9967; C9113; J0330; J2060; J2270; J2920; J2930; J3475; J3480; J7030; J7050; J7512; S0028